=== PATIENT | female | born 1950 | race Caucasian/White ===

== ENCOUNTER → 2022-01-26 07:22 | Outpatient (CLI) | payer MEDICARE, SELFPAY ==
[2022-01-26 08:09] LABS: RBC Urine 0-1/HPF (0-5/HPF); Squamous Epithelial Cell Urine 1-5 /HPF (0-5/HPF); WBC Urine 1-5/HPF (0-5/HPF)
[2022-01-26 08:10] LABS: Bacteria Urine Moderate (10-30); Culture Indicated Urine Cult Not Indicated; Hyaline Casts Urine 5-10/LPF
== END ==
PROVIDERS: PCP Physician Assistant; Visit Provider Nurse Practitioner Critical Care Medicine
DX: R10.2 Pelvic and perineal pain (principal)
CPT/HCPCS: 81015

== ENCOUNTER 2022-01-26 07:48 | Emergency (ER) | payer MEDICARE, SELFPAY ==
[2022-01-26] VITALS (8 sets, daily range): BP systolic 132–168; BP diastolic 64–80; PULSE 58–68; RESP 18; TEMP 37.1; O2SAT 95–100; BMI 23.6
--- NOTE | 2022-01-26 08:22 | ED_ITS ---
HPI - Abdominal Pain General Chief Complaint: Abdominal Pain Stated Complaint: Sent by [facility] severe abd pain Time Seen by Provider: 01/26/22 07:58 Source: patient Mode of arrival: Ambulatory History of Present Illness HPI narrative: Patient sent here from walk-in clinic. Complains of 1 week of abdominal cramping at the suprapubic right lower quadrant left lower quadrant areas. The pattern would awake her at 3:00 a.m. and by time breakfast it would resolve. No pain the rest of the day. However today has been constant. It does not ra diate. No vomiting no diarrhea. No black stools. No urinary complaints. No prior abdominal surgical history. No colonoscopy history. Patient states a couple weeks ago felt very tired and fatigued and took [id number] magnesium and iron supplements but soon stopped taking that. She had felt tired fatigued. Related Data Previous Rx's Medication Instructions Recorded prednisone 20 mg tablet 20 mg PO SEE INSTRUCTIONS #12 tabs 10/18/16 Allergies Allergy/AdvReac Type Severity Reaction Status Date / Time bacitracin Allergy Mild Unverified 08/07/17 13:03 [From NEOSPORIN ([id number])] clotrimazole [CLOTRIMAZOLE] Allergy Mild Unverified 08/07/17 13:03 neomycin Allergy Mild Unverified 08/07/17 13:03 [From NEOSPORIN ([id number])] nickel [NICKEL] Allergy Mild Unverified 08/07/17 13:03 polymyxin B Allergy Mild Unverified 08/07/17 13:03 [From NEOSPORIN ([id number])] Review of Systems Review of Systems Narrative: GENERAL: Denies chills, positive fatigue, malaise, negative fever, sweats. HEENT: Denies sinus pain, ear pain, sore throat RESPIRATORY: Denies dyspnea, cough CARDIOVASCULAR: Denies chest pain, palpitations GASTROINTESTINAL: Denies nausea, vomiting, positive abdominal pain : Denies dysuria, frequency, hematuria MUSCULOSKELETAL: denies muscle or bony pain SKIN: Denies rash, skin lesions NEUROLOGIC: Denies weakness, numbness ROS Unobtainable: All systems reviewed & are unremarkable except as noted in HPI and below Patient History Social History Smoking Status: Never smoker Smoking Status: Never smoker alcohol intake frequency: 0-2 drinks per day Alcohol type: wine Substance Use Type: does not use Exam Narrative Exam Narrative: GENERAL: in no distress, not toxic not dyspneic HEAD: Normocephalic. EYES: Pupils equal round No scleral icterus. Pale conjunctiva ENT: Mucous membranes moist. NECK: Trachea midline. CARDIOVASCULAR: Regular rate and rhythm without murmurs RESPIRATORY: Clear to auscultation. Breath sounds equal bilaterally. No wheezes, rales, or rhonchi. GASTROINTESTINAL: Abdomen soft, mild suprapubic tenderness, no peritoneal signs, bowel sounds are present, no CVA tenderness EXTREMITIES: No gross deformities. BACK: No flank tenderness. NEURO: AOx4. SKIN: Warm and dry PSYCH: Not anxious, is cooperative Initial Vital Signs Initial Vital Signs: Vital Signs Temperature 98.7 F 01/26/22 08:06 Pulse Rate 58 L 01/26/22 08:06 Respiratory Rate 18 01/26/22 08:06 Blood Pressure 168/78 H 01/26/22 08:06 Pulse Oximetry 100 01/26/22 08:06 Oxygen Delivery Method 01/26/22 08:06 Course Course Course Narrative: No new issues during course of stay Orders Ordered: Discontinued Medications Sodium Chloride (Normal Saline 0.9%) 500 mls @ 1,000 mls/hr IV BOLUS ONE Stop: 01/26/22 09:18 Last Infusion: 01/26/22 10:44 Dose: 0 mls/hr Documented By: Admin: 01/26/22 09:52 Dose: 1,000 mls/hr Documented By: LAZARO Reevaluation(s) Reevaluation #1: Updated patient results. Laboratory studies and imaging are reassuring. At this time nonspecific abdominal discomfort. However does have diverticulosis but no diverticulitis. I will give her referral to general surgeon for outpatient colonoscopy. She agrees with this treatment plan. She understands no medication prescriptions indicated this time. No antibiotics. She desires discharge home. Return precautions reviewed with her. Time: 11:58 Vital Signs Vital signs: Vital Signs - 8 hr 01/26/22 08:06 01/26/22 09:45 01/26/22 09:46 Temperature 98.7 F Pulse Rate 58 L 64 Respiratory Rate 18 Blood Pressure 168/78 H Pulse Oximetry 100 95 98 Oxygen Delivery Method Room Air Room Air 01/26/22 09:46 01/26/22 10:00 01/26/22 10:00 Temperature Pulse Rate 65 Respiratory Rate Blood Pressure 155/80 H 139/80 Pulse Oximetry 97 Oxygen Delivery Method 01/26/22 10:30 01/26/22 10:31 01/26/22 10:31 Temperature Pulse Rate 68 Respiratory Rate Blood Pressure 148/67 H Pulse Oximetry 98 97 Oxygen Delivery Method 01/26/22 11:00 01/26/22 11:00 01/26/22 11:30 Temperature Pulse Rate 62 59 L Respiratory Rate Blood Pressure 132/64 Pulse Oximetry 96 96 Oxygen Delivery Method MDM - Abdominal Pain Differential Diagnosis Differential diagnosis: Likely abdominal pain, acute appendicitis, constipation, diverticulitis, gastroenteritis, pancreatitis and small bowel obstruction Lab Data Result diagrams: 01/26/22 08:30 01/26/22 08:30 Labs: Lab Results 01/26/22 01/26/22 01/26/22 Range/Units 08:30 08:30 08:30 WBC 7.3 (4.5-11.0) X10^3/uL RBC 4.19 (4.0-5.2) X10^6/uL Hgb 12.8 (12.0-16.0) g/dL Hct 37.8 (36-46) % MCV 90.1 (80-100) fL MCH 30.5 (26-34) PG MCHC 33.9 (30-36) % RDW 13.9 (11.6-14.8) % Plt Count 181 (150-400) X10^3/uL Neut % (Auto) 72.6 (50-75) % Lymph % (Auto) 18.3 L (25-40) % [place] % (Auto) 5.7 (3-14) % Eos % (Auto) 3.0 (2-4) % Baso % (Auto) 0.4 (0-2) % Neut # (Auto) 5300 (8643-5675) /uL Lymph # (Auto) 1300 (1719-6703) /uL [place] # (Auto) 400 (0-900) /uL Eos # (Auto) 200 (0-450) /uL Baso # (Auto) 0 (0-100) /uL Sodium 140 (137-145) mmol/L Potassium 4.2 (3.4-5.1) mmol/L Chloride 106 (98-107) mmol/L Carbon Dioxide 23 (22-32) mmol/L BUN 26 H (7-17) mg/dL Creatinine 0.81 (0.52-1.04) mg/dL Estimated GFR > 60 (>60) mL/min BUN/Creatinine Ratio 32.1 H (6-22) Glucose 144 H (80-110) mg/dL Calcium 9.0 (8.4-10.2) mg/dL Total Bilirubin 0.4 (0.2-1.3) mg/dL AST 33 (14-36) IU/L ALT 28 (<35) IU/L Alkaline Phosphatase 69 (38-126) U/L Total Protein 7.3 (6.3-8.2) g/dL Albumin 4.4 (3.5-5.0) g/dL Globulin 2.9 (1.7-4.1) g/dL Albumin/Globulin Ratio 1.5 (1.0-2.8) Lipase 188 (23-300) U/L Stl C. cayetanensis PCR Not detected (Not Detect) Stool Rotavirus (PCR) Not detected (Not Detect) Stool Adenovirus (PCR) Not detected (Not Detect) Stool Astrovirus (PCR) Not detected (Not Detect) Stool Cryptosporidium PCR Not detected (Not Detect) Stl E.coli Shiga Tox PCR Not detected (Not Detect) St Sh/Enteroin Ecoli PCR Not detected (Not Detect) Stool E coli O157 PCR Not detected (Not Detect) Stl Enterotoxigenic E PCR Not detected (Not Detect) Stool EPEC (PCR) Not detected (Not Detect) Stl E. histolytica PCR Not detected (Not Detect) Stool Giardia Lamblia PCR Not detected (Not Detect) Stool Sapovirus (PCR) Not detected (Not Detect) Stl P. shigelloides PCR Not detected (Not Detect) St Y.enterocolitica PCR Not detected (Not Detect) Stool Vibrio (PCR) Not detected (Not Detect) Stl Vibrio cholerae PCR Not detected (Not Detect) Stl Enteroaggr Ecoli PCR Not detected (Not Detect) Stl Norovirus GI/GII PCR Not detected (Not Detect) Campylobacter (PCR) Not detected (Not Detect) C. difficile Tox (PCR) Not detected (Not Detect) Salmonella (PCR) Not detected (Not Detect) Imaging Data CT scan - abdomen/pelvis: Radiologist's Impression: [address] [address] [address] Scan Report Signed Patient: Leslie Winn MR#: [id number] : 1950 Acct:[id number] Age/Sex: 71 / F Date of Service: 01/26/22 Loc: ED Accession Number: [id number] ?? Procedure: CT abdomen pelvis w con Ordering Provider: Dl Mayo MD PROCEDURE:? CT ABDOMEN PELVIS W CON ? INDICATIONS:? IV contrast only/lower abdominal pain ? TECHNIQUE:? After the administration of intravenous contrast, axial sections acquired from the lung bases to the pubic symphysis.? Coronal and sagittal reformats were performed.? For radiation dose reduction, the following was used:? automated exposure control, adjustment of mA and/or kV according to patient size.? ? COMPARISON:? None. ? FINDINGS: ? Image quality:? Excellent.? ? Lung bases:? Unremarkable.? ? Heart:? No significant findings. ? ABDOMEN: Liver:? There is diffuse hypoattenuation of the liver parenchyma relative to the spleen compatible with hepatic steatosis..? ? Gallbladder:? Unremarkable.? ? Biliary ducts:? Unremarkable.? ? Pancreas:? Unremarkable.? ? Spleen:? Unremarkable.? ? Adrenal Glands:? Unremarkable.? ? Kidneys and Ureters:? Kidneys are symmetric in size and enhancement, and there is no obstructive uropathy.? No perinephric inflammatory changes. Ureters are normal in course and caliber.? Stomach and Bowel:? Stomach appears unremarkable.? Scattered colonic diverticula without evidence for acute diverticulitis.? Normal appendix.? Multiple scattered nonspecific loops of fluid-filled small bowel without significant wall thickening or adjace nt inflammatory stranding. Peritoneum:? No abnormal intraperitoneal fluid.? No free air.? ? Ventral Wall: ? No hernia.? Abdominal Nodes:? No retroperitoneal or mesenteric adenopathy by size criteria.? Vessels:? Scattered atherosclerotic calcifications of the abdominal aorta and iliac vessels without aneurysmal dilatation.? The inferior vena cava appears patent.? ? PELVIS: Pelvic Organs:? Status post hysterectomy.? ? Bladder:? Urinary bladder thickness appears normal for degree of distention. No perivesicular inflammatory stranding.? ? Pelvic Nodes: No enlarged lymph nodes.? Miscellaneous: No inguinal hernias are seen. ? ? ? Bones:? No acute vertebral body compression fractures. Multilevel spondylitic changes throughout the imaged spine.? No suspicious osseous lesions.? ? ? IMPRESSION:? ? 1. Multiple fluid-filled loops of small bowel without associated wall thickening or inflammatory changes.? Findings are nonspecific but may represent enteritis. ? 2. Scattered colonic diverticulosis without evidence for acute diverticulitis. ? 3. Hepatic steatosis. ? 4. Normal appendix. ? 5. Atherosclerosis.? ? ? Dictated by: Adolfo Naidu M.D. on 01/26/2022 at 9:55 ? ? Approved by: Adolfo Naidu M.D. on 01/26/2022 at 10:01 ? MDM Narrative Medical decision making narrative: Appropriate for discharge home. Exam and laboratory studies and imaging are reassuring. No antibiotics indicated at this time. No antiparasitic either. Patient has never had colonoscopy, she agrees for outpatient referral to Dr. Mireles. Return precautions reviewed with her. She desires discharge home. Discharge Plan Departure Patient Disposition: Home Clinical Impression: Abdominal pain Instructions: DI for Abdominal Pain-Adult Activity Restrictions/Additional Instructions: Return if worsening questions or concerns. May continue home medications. Laboratory studies and CT scan are reassuring today. Please call Dr. Mireles office today to schedule office appointment and for outpatient colonoscopy. Return if worse if any questions or concerns. Prescriptions: No Action prednisone 20 MG tablet 20 mg PO SEE INSTRUCTIONS Qty: 12 0RF Referrals: Cruz Mireles MD [Physician] - Lyle Mendez MD [Primary Care Provider] - Visit Report Forms: Patient Portal/API
[2022-01-26 08:47] LABS: Add Manual Diff / Slide Review NO; Basophils Absolute Auto 0 /uL (0-100); Basophils Percent Auto 0.4 % (0-2); Eosinophils Absolute Auto 200 /uL (0-450); Hematocrit 37.8 % (36-46); Hemoglobin 12.8 g/dL (12.0-16.0); Lymphocytes Absolute Auto 1300 /uL (1100-4500); Lymphocytes Percent Auto 18.3 % (25-40); Mean Corpuscular HGB Conc 33.9 % (30-36); Mean Corpuscular Hemoglobin 30.5 PG (26-34); Mean Corpuscular Volume 90.1 fL (80-100); Monocytes Absolute Auto 400 /uL (0-900); Monocytes Percent Auto 5.7 % (3-14); Neutrophils Absolute Auto 5300 /uL (1500-7000); Neutrophils Percent Auto 72.6 % (50-75); Platelet Count 181 X10^3/uL (150-400); Red Blood Cell Count 4.19 X10^6/uL (4.0-5.2); Red Cell Distribution Width 13.9 % (11.6-14.8); White Blood Cell Count 7.3 X10^3/uL (4.5-11.0)
--- NOTE | 2022-01-26 08:49 | DI.CT.S_ITS ---
PROCEDURE: CT ABDOMEN PELVIS W CON INDICATIONS: IV contrast only/lower abdominal pain TECHNIQUE: After the administration of intravenous contrast, axial sections acquired from the lung bases to the pubic symphysis. Coronal and sagittal reformats were performed. For radiation dose reduction, the following was used: automated exposure control, adjustment of mA and/or kV according to patient size. COMPARISON: None. FINDINGS: Image quality: Excellent. Lung bases: Unremarkable. Heart: No significant findings. ABDOMEN: Liver: There is diffuse hypoattenuation of the liver parenchyma relative to the spleen compatible with hepatic steatosis.. Gallbladder: Unremarkable. Biliary ducts: Unremarkable. Pancreas: Unremarkable. Spleen: Unremarkable. Adrenal Glands: Unremarkable. Kidneys and Ureters: Kidneys are symmetric in size and enhancement, and there is no obstructive uropathy. No perinephric inflammatory changes. Ureters are normal in course and caliber. Stomach and Bowel: Stomach appears unremarkable. Scattered colonic diverticula without evidence for acute diverticulitis. Normal appendix. Multiple scattered nonspecific loops of fluid-filled small bowel without significant wall thickening or adjacent inflammatory stranding. Peritoneum: No abnormal intraperitoneal fluid. No free air. Ventral Wall: No hernia. Abdominal Nodes: No retroperitoneal or mesenteric adenopathy by size criteria. Vessels: Scattered atherosclerotic calcifications of the abdominal aorta and iliac vessels without aneurysmal dilatation. The inferior vena cava appears patent. PELVIS: Pelvic Organs: Status post hysterectomy. Bladder: Urinary bladder thickness appears normal for degree of distention. No perivesicular inflammatory stranding. Pelvic Nodes: No enlarged lymph nodes. Miscellaneous: No inguinal hernias are seen. Bones: No acute vertebral body compression fractures. Multilevel spondylitic changes throughout the imaged spine. No suspicious osseous lesions. IMPRESSION: 1. Multiple fluid-filled loops of small bowel without associated wall thickening or inflammatory changes. Findings are nonspecific but may represent enteritis. 2. Scattered colonic diverticulosis without evidence for acute diverticulitis. 3. Hepatic steatosis. 4. Normal appendix. 5. Atherosclerosis. Dictated by: Adolfo Naidu M.D. on 01/26/2022 at 9:55 Approved by: Adolfo Naidu M.D. on 01/26/2022 at 10:01
[2022-01-26 09:00] LABS: Alanine Aminotransferase 28 IU/L (<35); Albumin 4.4 g/dL (3.5-5.0); Albumin Globulin Ratio 1.5 (1.0-2.8); Alkaline Phosphatase 69 U/L (38-126); Aspartate Aminotransferase 33 IU/L (14-36); BUN Creatinine Ratio 32.1 (6-22); Bilirubin Total 0.4 mg/dL (0.2-1.3); Blood Urea Nitrogen 26 mg/dL (7-17); Carbon Dioxide 23 mmol/L (22-32); Chloride 106 mmol/L (98-107); Estimated Glomerular Filt Rate > 60 mL/min (>60); Globulin 2.9 g/dL (1.7-4.1); Glucose 144 mg/dL (80-110); HEMOLYSIS < 15 (0-50); Lipase 188 U/L (23-300); Potassium 4.2 mmol/L (3.4-5.1); Sodium 140 mmol/L (137-145); Total Protein 7.3 g/dL (6.3-8.2)
[2022-01-26 09:41] LABS: Adenovirus F 40/41 Not Detected (Not Detect); Astrovirus Not Detected (Not Detect); Campylobacter Not Detected (Not Detect); Clostridium difficile toxin AB Not Detected (Not Detect); Cryptosporidium Not Detected (Not Detect); Cyclospora cayetanensis Not Detected (Not Detect); Entamoeba histolytica Not Detected (Not Detect); Enteroaggregative E.coli Not Detected (Not Detect); Enteropathogenic E.coli Not Detected (Not Detect); Enterotoxigenic E.coli It/st Not Detected (Not Detect); Giardia lamblia Not Detected (Not Detect); Norovirus GI/GII Not Detected (Not Detect); Plesiomonsa shigelloides Not Detected (Not Detect); Rotavirus A Not Detected (Not Detect); Salmonella Not Detected (Not Detect); Sapovirus Not Detected (Not Detect); Shiga-like toxin-prod E.coli Not Detected (Not Detect); Shigella/Enteroinvasive E.coli Not Detected (Not Detect); Vibrio Not Detected (Not Detect); Vibrio cholerae Not Detected (Not Detect); Yersinia enterocolitica Not Detected (Not Detect)
[2022-01-26] MEDS: SODIUM CHLORIDE 0.9% 500 ML 1000 ML IV (09:52)
== END 2022-01-26 12:05 | disposition home or self-care (01) ==
PROVIDERS: Emergency Provider Emergency Medicine; PCP Specialist
DX: R10.31 Right lower quadrant pain (principal); R10.2 Pelvic and perineal pain
CPT/HCPCS: 36415; 74177; 80053; 81015; 83690; 85025; 87329; 87507; 99284; Q9967